=== PATIENT | male | born 1975 ===

== ENCOUNTER 2024-03-08 10:22 | Emergency (ER) | payer SELFPAY ==
--- NOTE | ~2024-03-08 | XR_ITS ---
EXAMINATION: XR LUMBOSACRAL SPINE CLINICAL INFORMATION: Pain. Injury. COMPARISON: None available. TECHNIQUE: Three views of the lumbosacral spine. FINDINGS: Normal vertebral body alignment. The lumbar lordosis is maintained. No acute fracture or subluxation. No loss of vertebral body height. Loss of intervertebral disc height with endplate osteophytes at L5-S1. No concerning lytic or blastic osseous lesion. No abnormal soft tissue calcification. XR/XR lumbar spine 2-3V IMPRESSION: Moderate degenerative disc disease at L5-S1.
[2024-03-08 11:43] VITALS: BP 134/68; PULSE 80; RESP 18; TEMP 36.3; O2SAT 100; BMI 27.4
--- NOTE | 2024-03-08 12:01 | ED_ITS ---
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 Patient recently began working in a [employer] and reports pain began after he attempted to lift a large case of juice at work 1 week ago. He does report history of sciatica however states this feels more like a spasm in his back. Pain begins along his left lower back and radiates down the left leg. Denies IV drug use. Denies history of spinal surgery. Denies numbness/tingling/weakness, dysuria, hematuria, saddle anesthesia, bowel or bladder incontinence or retention. 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 Related Data Previous Rx's ?Medication ?Instructions ?Recorded cyclobenzaprine 5 mg tablet 5 mg PO Q8H PRN muscle spasm #7 03/08/24 tabs lidocaine 5 % topical patch 1 patch topical DAILY #15 ea 03/08/24 (Lidoderm) naproxen 500 mg tablet 500 mg PO Q8-12H PRN pain (scale 03/08/24 score 4-6) #20 tabs Allergies Allergy/AdvReac Type Severity Reaction Status Date / Time No Known Allergies Allergy Verified 03/08/24 11:48 Review of Systems Review of Systems: Constitutional: No fever, chills, fatigue, night sweats, weight changes ENT/Mouth: No ear pain, hearing loss, nasal congestion, sinus pain, rhinorrhea, sore throat Eyes: No eye pain, swelling, redness, vision changes, discharge Cardio: No chest pain, palpitations, KIM, orthopnea, peripheral edema Pulm: No SOB, cough, sputum, wheezing, dyspnea, hemoptysis GI: No nausea, vomiting, hematemesis, abdominal pain, diarrhea, constipation, hematochezia, melena : No irregular bleeding, dysuria, frequency, urgency, hesitancy, hematuria, flank pain, urinary flow changes, urinary incontinence or retention MSK: +back pain, No neck pain, joint pain, myalgias Skin: No lesions, rashes Neuro: No weakness, numbness, paresthesias, LOC, dizziness, headache All other systems reviewed and are negative. [facility] Past Medical History Attestation statement: The following information was validated with the patient. Source: old records reviewed and nursing notes reviewed Social History Social History Advance Directives: No Advance Directives Information Provided: Yes Do you have a plan to hurt others: No Plan Physical Exam ED Vital Signs: Vital Signs - 24 hr 03/08/24 11:43 03/08/24 14:00 03/08/24 16:16 Temperature 97.3 F 97.4 F 97.2 F Pulse Rate 80 84 86 Respiratory Rate 18 16 Blood Pressure 134/68 133/71 131/68 Pulse Oximetry 100 100 100 Oxygen Delivery Method Room Air Room Air Room Air BMI result Body Mass Index 27.4 Vital signs stable, afebrile Const General: cooperative, healthy appearing, comfortable and no acute distress Orientation/consciousness: patient oriented x3 HENMT Head: Yes normal to inspection, Yes normocephalic and Yes atraumatic Eyes General: appearance normal, both eyes and all related structures Pupils: Equal, round and reactive pupils present EOM: EOMs intact bilaterally Neck Neck: Yes normal visual inspection, Yes full ROM, Yes no lymphadenopathy and Yes no meningeal signs Resp Effort & Inspection: normal respiratory effort Auscultation: clear to auscultation bilaterally Cardio Rate: regular rate Rhythm: regular rhythm GI Inspection: Yes normal to inspection Palpation (GI): Soft to palpation and nontender General: Yes no CVA tenderness Back/Spine/Pelvis Other: No midline spinous tenderness or step-off deformity. There is left lumbar paraspinal muscle tenderness to palpation without palpable spasm or mass. Back: no CVA tenderness Skin General skin exam: no rashes or lesions noted Neuro Other: Strength 5/5 intact throughout.? No saddle anesthesia.? Sensation intact to light touch.? Neurovascular intact distally.? General: patient oriented x3, gait normal and no meningeal signs Cranial nerves: Yes Equal, round and reactive pupils present Gait exam (Neuro): Normal gait present Deep tendon reflexes (DTR's): Right patellar reflex intensity grade: 2+ and Left patellar reflex intensity grade: 2+ Course Course Course Narrative: RME performed by Filomena Hunter PA-C. Patient is a 49 year old assigned male at presenting to the emergency department with left sided back pain. Patient states he started a new job at the [employer] and is having low back pain. Detailed physical exam and review of systems are deferred to the airdrop systems technician. Imaging ordered. Patient placed back in the waiting room pending room availability and results. Reevaluation(s) Reevaluation #1: 145-- x-ray lumbar spine showing moderate degenerative disc disease at L5-S1. I did discuss these results with patient. He has been treated with Flexeril, Toradol and lidocaine patch. I have suspicion for muscle spasm vs a sciatica. Will send Flexeril, naproxen and lidocaine patches to pharmacy. Advised him to follow up with PCP for possible physical therapy. Patient has remained stable throughout ED visit today. Discussed worrisome signs and symptoms and when to return to the ED. All questions answered at this time. Patient is agreeable with disposition and stable for discharge. Medications Administered Discontinued Medications Generic Name Dose Route Start Last Admin Trade Name Freq PRN Reason Stop Dose Admin Cyclobenzaprine HCl 5 mg 03/08/24 14:48 03/08/24 15:15 Cyclobenzaprine Hcl 5 Mg Tablet PO 03/08/24 14:49 5 mg ONCE ONE Administration Ketorolac Tromethamine 30 mg 03/08/24 14:53 03/08/24 15:15 Ketorolac Tromethamine 30 Mg/Ml Vial IM 03/08/24 14:54 30 mg ONCE ONE Administration Lidocaine 1 patch 03/08/24 14:48 03/08/24 15:29 Lidocaine 4 % Patch Adh..Patch TRANSDERMA 03/08/24 14:49 Not Given ONCE ONE Protocol Medical Decision Making Medical Decision Making MDM Narrative: 49-year-old Faroese-speaking male with no significant past medical history presents to the ED today for evaluation of left lower back pain x1 week. Vital signs stable, afebrile. Patient is nontoxic-appearing and in no acute distress. On exam, no midline spinous tenderness or step-off deformity. There is left lumbar paraspinal muscle tenderness to palpation without palpable spasm/mass. Ambulating with steady gait, unassisted. No CVAT bilaterally. Sensation intact to light touch. Strength 5/5 intact throughout. Neurovascularly intact distally. Skin warm, dry, intact. no rashes. Differential diagnosis includes MSK sprain/strain, fracture, subluxation, disc herniation, sciatica. Unlikely UTI, nephrolithiasis, renal colic. Unlikely cord compression, cauda equina, Guillain-Milford, epidural abscess. Plan for imaging, pain control, re-evaluation. Differential Diagnosis Differential Diagnoses: The differential diagnosis associated with the presentation includes as above Admission/Observation Not indicated. Independent Interpretation I performed an independent interpretation of an: Plain X-Ray Interpretation: XR lumbar spine without acute fracture, agree with radiologist's interpretation. Radiology Impression Discussion of test interpretation with radiology: I have reviewed the radiologist's reading. Radiologist Impression: EXAMINATION: XR LUMBOSACRAL SPINE CLINICAL INFORMATION: Pain. Injury. COMPARISON: None available. TECHNIQUE: Three views of the lumbosacral spine. FINDINGS: Normal vertebral body alignment. The lumbar lordosis is maintained. No acute fracture or subluxation. No loss of vertebral body height. Loss of intervertebral disc height with endplate osteophytes at L5-S1. No concerning lytic or blastic osseous lesion. No abnormal soft tissue calcification. XR/XR lumbar spine 2-3V IMPRESSION: Moderate degenerative disc disease at L5-S1. Independent Historian Clinical information obtained from an independent historian. History obtained from or confirmed by: Spouse () External Record Review External record reviewed: Inpatient record Prescription Management I considered prescription management with: Pain Medication and Other (flexeril, lido patch) Chronic Conditions Patient?s care impacted by: Other (sciatica) Social Determinants Patient?s care significantly limited by Social Determinants of Health including: Other Social Determinant of Health Critical Care Time Critical Care Time Critical Care Time: No Discharge Plan Discharge Clinical Impression: Lumbar radiculopathy, Sciatica Patient Disposition: Home, Self-Care Instructions: Sciatica (ED), Lumbar Radiculopathy (ED), Lower Back Exercises (ED) Additional Instructions: Your imaging studies today did not show acute fracture. Your pain is likely musculoskeletal. Avoid bending, lifting, or twisting. Use ice several times per day for 20 minutes at a time for the next 48 hours and then change to heat. Flexeril is a muscle relaxer. Take this at night as it makes you drowsy. Do not drive, drink alcohol, or operate machinery while taking it. Naproxen is an anti-inflammatory / pain medication. Take with food. Do not take this with other NSAIDs such as Motrin or Aleve as this may increase risk of GI bleeding. Lidoderm patches are numbing patches. Apply to painful areas. In addition you may take Tylenol at home. Follow up with your primary care provider as needed. If you do not have a PCP, a referral has been provided to you. If your pain worsens, if you develop new numbness, tingling, weakness, loss of bowel or bladder function call 911 or return to the ER immediately for evaluation. Prescriptions: New cyclobenzaprine 5 mg tablet 5 mg PO Q8H PRN (Reason: muscle spasm) Qty: 7 0RF lidocaine [Lidoderm] 5 % adhesive patch,medicated 1 patch topical DAILY Qty: 15 0RF Rx Instructions: leave on most painful area for up to 12 hrs naproxen 500 mg tablet 500 mg PO Q8-12H PRN (Reason: pain (scale score 4-6)) Qty: 20 0RF Stand Alone Forms: Work/School Release Interventions: ED Discharge Assessment Last Done: 03/08/24 16:16 Discharge Date/Time: 03/08/24 16:17 Print Language: Faroese
[2024-03-08 14:00] VITALS: BP 133/71; PULSE 84; TEMP 36.3; O2SAT 100
[2024-03-08] MEDS: Cyclobenzaprine HCl 5 MG TABLET PO (15:15)
[2024-03-08] MEDS: Ketorolac Tromethamine 30 MG/ML VIAL IM (15:15)
--- NOTE | 2024-03-08 15:19 | PC.NURSE ---
pt medicated for lle pain 07/08, pt denies back pain, call farris within reach, will continue to monitor
[2024-03-08 16:16] VITALS: BP 131/68; PULSE 86; RESP 16; TEMP 36.2; O2SAT 100
== END 2024-03-08 16:17 | disposition home or self-care (01) ==
PROVIDERS: Emergency Provider Emergency Medicine
DX: M51.17 Intervertebral disc disorders with radiculopathy, lumbosacral region (principal)
CPT/HCPCS: 72100; 96372; 99283; 99284; J1885

== ENCOUNTER 2024-10-23 09:21 | Emergency (ER) | payer OTHER, SELFPAY ==
--- NOTE | ~2024-10-23 | XR_ITS ---
CLINICAL HISTORY: fall Right shoulder three views Comparison: None Findings: Intact glenohumeral joint. Humeral head aligning with the glenoid in the scapular Y-view. No fracture or dislocation. Subtle offset at the AC joint with the clavicle slightly rostral to the acromion. May be arthritic versus grade 1 AC joint sprain. Regional soft tissues unremarkable. No acute process evident in the included right lung. Impression: Possible mild grade 1 AC joint sprain. Otherwise negative. This document has been electronically signed by: Abner Gama MD on 10/23/2024 09:53:16
--- NOTE | ~2024-10-23 | XR_ITS ---
CLINICAL HISTORY: fall Right wrist four views Comparison: None Findings: Normal bone density and alignment. No fracture or dislocation. Slight degenerative arthritis at the thumb carpometacarpal joint. Otherwise joints intact. The pronator quadratus fat pad appears slightly displaced suggesting mild soft tissue swelling. Otherwise soft tissues intact. Impression: Subtle soft tissue swelling. No acute fracture or dislocation. This document has been electronically signed by: Abner Gama MD on 10/23/2024 09:55:43
[2024-10-23 09:25] VITALS: BP 129/81; PULSE 73; RESP 18; TEMP 36.7; O2SAT 99; BMI 28.6
--- NOTE | 2024-10-23 10:42 | ED_ITS ---
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 His employer is [employer]. He states that he was attempting to load something onto a Pallet, he had turned to do so when his foot got caught in between 2 pallets resulting in him falling and landing onto the right shoulder/arm. He denies any head strike or loss of consciousness. He denies use of anticoagulants or known coagulation disorders. He is endorsing pain diffusely through the right shoulder but primarily in the anterior shoulder as well as mild pain to the right wrist. He denies any numbness tingling or cold sensation to the arm/hand. Pain is exacerbated with movement of the arm. Related Data Previous Rx's ?Medication ?Instructions ?Recorded cyclobenzaprine 5 mg tablet 5 mg PO Q8H PRN muscle spasm #7 03/08/24 tabs lidocaine 5 % topical patch 1 patch topical DAILY #15 ea 03/08/24 (Lidoderm) naproxen 500 mg tablet 500 mg PO Q8-12H PRN pain (scale 03/08/24 score 4-6) #20 tabs Allergies Allergy/AdvReac Type Severity Reaction Status Date / Time No Known Allergies Allergy Verified 10/23/24 09:26 Review of Systems Review of Systems: Yes all other systems are reviewed and are negative [facility] Past Medical History Attestation statement: The following information was validated with the patient. Source: old records reviewed Social History Social History Advance Directives: No Advance Directives Information Provided: No Do you have a plan to hurt others: No Plan Physical Exam Vital Signs: Vital Signs: Last Vital Signs Temp 98.0 F 10/23/24 09:25 Pulse 73 10/23/24 09:25 Resp 18 10/23/24 09:25 BP 129/81 10/23/24 09:25 Pulse Ox 99 10/23/24 09:25 O2 Del Method Room Air 10/23/24 09:25 BMI result Body Mass Index 28.6 Appearance: Alert.?Oriented to person, place and time. No acute dis tress.?Normal affect. CVS: Heart sounds normal. Normal heart rate and rhythm.? Pulses normal.?? Respiratory: No respiratory distress.? Lung sounds clear to auscultation bilaterally??? Skin: Skin warm and dry.? Normal skin color.? Extremities: No extremity edema. Right wrist is without obvious deformity erythema or warmth. Mild decreased flexion and extension. 2+ radial pulse. Able to passively range the right arm; straight arm forward flex overhead to approximally 130 degrees, though painful to do so. Due to pain and limited motion unable to perform supraspinatus test, drop-arm test. Minimal external rotation due to pain for infraspinatus and teres minor test Neuro: Moves all extremities spontaneously. Sensation intact bilaterally. Ambulates with normal steady gait. Medical Decision Making Medical Decision Making MDM Narrative: Patient is a 49-year-old male who presents emergency department for evaluation after a work-related injury to the right shoulder hand of the right wrist per HPI. Mild decreased AROM to the right wrist without acute fracture dislocation seen on XR imaging consistent with a sprain. In regards to the right shoulder XR is without acute fracture, there is perhaps a mild grade 1 AC joint injury. On evaluation he is positive Neer test, unable to perform Power test. Difficulty assessing supraspinatus/drop-arm test due to limited abduction of the arm. Pain is primarily located to the anterior portion of the shoulder but has no pain upon palpation of the biceps tendon, not consistent with triceps tendinitis. He was placed in a shoulder sling in educated on the importance of gentle ranging of the shoulder but not to a degree of pain, to prevent immobilization/bruising of the shoulder. Advised to contact his employer to inquire as to where he should have follow-up regarding work-related injury. If there is no radicular place he has been provided with the contact information for work connection. His extremities neurovascularly intact distally. I discussed with him as well conservative treatment rest, ice, elevation to the best agree possible, acetaminophen/ibuprofen. All questions were answered. Stable for discharge Differential Diagnosis Differential Diagnoses: The differential diagnosis associated with the presentation includes (dislocation, clavicular fracture, humerus fracture, scapular fracture, AC joint injury, glenohumeral instability, rotator cuff tear, biceps tendon tear, triceps tendon tear, wrist fracture, wrist dislocation, wrist sprain) Independent Interpretation I performed an independent interpretation of an: Plain X-Ray (No acute fracture dislocation of the shoulder/wrist) Radiology Impression Discussion of test interpretation with radiology: I have reviewed the radiologist's reading. Radiologist Impression: Right wrist four views Comparison: None Findings: Normal bone density and alignment. No fracture or dislocation. Slight degenerative arthritis at the thumb carpometacarpal joint. Otherwise joints intact. The pronator quadratus fat pad appears slightly displaced suggesting mild soft tissue swelling. Otherwise soft tissues intact. Impression: Subtle soft tissue swelling. No acute fracture or dislocation. Right shoulder three views Comparison: None Findings: Intact glenohumeral joint. Humeral head aligning with the glenoid in the scapular Y-view. No fracture or dislocation. Subtle offset at the AC joint with the clavicle slightly rostral to the acromion. May be arthritic versus grade 1 AC joint sprain. Regional soft tissues unremarkable. No acute process evident in the included right lung. Impression: Possible mild grade 1 AC joint sprain. Otherwise negative. Independent Historian Clinical information obtained from an independent historian. History obtained from or confirmed by: Spouse External Record Review External record reviewed: Outpatient record Prescription Management I considered prescription management with: Pain Medication Discharge Plan Discharge Clinical Impression: Acromioclavicular sprain Patient Disposition: Home, Self-Care Instructions: Shoulder Sprain (ED), R.I.C.E. Treatment (ED) Additional Instructions: You can take ibuprofen 200 mg, 3 tablets (600mg) every 6-8 hours as needed for pain, in addition to Tylenol 500 mg, 2 tablets (1,000mg) every 4-6 hours as needed for pain, but not to exceed 3 doses daily (3,000mg).? Use the Rigo bandage to the wrist for compression as instructed. Use the sling to the right arm/shoulder particularly when you are up and moving. While you are rest, you may remove the sling and perform gentle movement to the arm/shoulder. As mentioned, do not push yourrself to the point of pain if you were able to move it slightly without pain then you should do so to prevent immobilization/freezing of the shoulder. Ice for 15 minutes at least 4-5 times daily, on for 15 minutes off for at least 45 minutes. You may do this hourly throughout the day over the next 2-3 days. Contact your employer to make them aware of your visit here today, they will instruct you if there is a particular place where you need to follow-up after an injury or if you may follow-up with our work connection here at this hospital. Prescriptions: No Action cyclobenzaprine 5 mg tablet 5 mg PO Q8H PRN (Reason: muscle spasm) Qty: 7 0RF lidocaine [Lidoderm] 5 % adhesive patch,medicated 1 patch topical DAILY Qty: 15 0RF Rx Instructions: leave on most painful area for up to 12 hrs naproxen 500 mg tablet 500 mg PO Q8-12H PRN (Reason: pain (scale score 4-6)) Qty: 20 0RF Referrals: [facility] [Provider Group] Print Language: Belarusian
[2024-10-23 11:41] VITALS: BP 129/81; PULSE 73; RESP 18; TEMP 36.7; O2SAT 99
== END 2024-10-23 11:41 | disposition home or self-care (01) ==
PROVIDERS: Emergency Provider Emergency Medicine
DX: S43.51XA Sprain of right acromioclavicular joint, initial encounter (principal); W23.1XXA Caught, crushed, jammed, or pinched between stationary objects, initial encounter; M25.531 Pain in right wrist; M25.511 Pain in right shoulder; Y93.89 Activity, other specified; Y92.512 Supermarket, store or market as the place of occurrence of the external cause; Y99.0 Civilian activity done for income or pay
CPT/HCPCS: 73030; 73110; 99282; 99283

== ENCOUNTER → 2024-10-23 09:33 | Outpatient (BNV) | payer SELFPAY | PROVIDERS: Visit Provider Radiology Diagnostic Radiology | DX: M25.511 Pain in right shoulder (principal); M25.531 Pain in right wrist | CPT/HCPCS: 73030; 73110 ==